=== PATIENT | female | born 1995 | race Caucasian/White ===

== ENCOUNTER 2019-03-25 21:22 | Emergency (ER) | payer OTHER ==
[~2019-03-25] VITALS: Ht 157.5 cm; Wt 73.9 kg
[~2019-03-25 21:22] MED LIST: IBUP-1542 PO
[2019-03-25 21:26] VITALS: BP 113/64; PULSE 94; RESP 18; Ht 157.5 cm; Wt 73.9 kg
[2019-03-25] MEDS ORDERED: HYDROCODONE/APAP (5/325) TAB PO ONE (23:00)
[2019-03-25] MEDS ORDERED: ACETAMINOPHEN 325 MG TAB PO ONE (23:00)
--- NOTE | 2019-03-26 02:46 | ERD ---
ER Documentation Chief Complaint Chief Complaint [facility]; STATES HIT HEAD IN SHOWER X1HR AGO; NO ALOC, NO KO HPI This is a 23-year-old otherwise healthy female presents to the ED complaining of a headache status post mechanical slip and fall in the shower earlier today. Patient states she fell onto the right side of her head but did not lose consciousness. She states she subsequently got up and then slipped again and fell to her left side. She is currently complaining of a throbbing, 8 out of 10 headache to her right temporal scalp. Also complaining of the left hip pain. She has no limping. No focal weakness. No changes in vision. She reports feeling a little bit nauseous but has had no vomiting. Took ibuprofen at home without any relief. She presents here today requesting CT of the head and further imaging. ROS All systems reviewed and are negative except as per history of present illness. Medications Home Meds Active Scripts Ibuprofen* (Motrin*) 600 Mg Tab, 600 MG PO Q8, #30 TAB Prov:DIYA DOW PA-C 03/26/19 Allergies Allergies: Coded Allergies: No Known Allergy (Unverified , 03/25/19) PMhx/Soc Medical and Surgical Hx: pt denies Medical Hx, pt denies Surgical Hx History of Surgery: No Anesthesia Reaction: No Hx Neurological Disorder: No Hx Respiratory Disorders: No Hx Cardiac Disorders: No Hx Psychiatric Problems: No Hx Miscellaneous Medical Probl: No Hx Alcohol Use: No Hx Substance Use: No Hx Tobacco Use: No Smoking Status: Never smoker FmHx Family History: No diabetes Physical Exam Vitals Vital Signs Date Temp Pulse Resp B/P (MAP) Pulse Ox O2 O2 Flow FiO2 Time Delivery Rate 03/25/19 98.5 94 18 113/64 98 21:26 (80) Physical Exam Const: No acute distress Head: + Mild TTP to right temporal scalp no hematoma or bruising., Eyes: Normal Conjunctiva. No raccoon eyes. ENT: Normal External Ears, Nose and Mouth. No french signs. Neck: Full range of motion. No meningismus. Resp: Clear to auscultation bilaterally Cardio: Regular rate and rhythm, no murmurs Abd: Soft, non tender, non distended. Normal bowel sounds Skin: No petechiae or rashes Back: No midline or flank tenderness Neuro: M/S: Alert and oriented Face: EOMI, face and pharynx with normal sensation and function Motor: Normal strength throughout Sensation: Normal sensation throughout Speech: Normal Cerebel: Normal coordination Normal gait Normal finger to nose DTR: 2+ and symmetric upper/lower extremities Neur: Awake and alert Psych: Normal Mood and Affect Results 24 hrs Laboratory Tests Test 03/25/19 22:58 POC Beta HCG, Qualitative NEGATIVE Current Medications Medications Dose Sig/Stephanie Start Time Status Last (Trade) Ordered Route PRN Stop Time Admin Dose Reason Admin 650 mg ONCE ONCE 03/25/19 DC Acetaminophen PO 23:00 03/25/19 (Tylenol 23:00 Tab) 1 tab ONCE ONCE 03/25/19 DC 03/25/19 Acetaminophen PO 23:00 03/25/19 22:57 / 23:01 Hydrocodone Bitart (Ecorse (5/325)) Procedures/[facility]M LABS & DIAGNOSTIC IMAGING: PROCEDURE: XR Left Hip With Pelvis When Performed, 2 or 3 Views CLINICAL INDICATION: Fall. Hip pain. TECHNIQUE: Two or three views of the left hip, with pelvis when performed. COMPARISON: None FINDINGS: BONES/JOINTS: Unremarkable. No acute fracture. No dislocation. SOFT TISSUES: Unremarkable. IMPRESSION: Unremarkable left hip x-rays series. PROCEDURE: CT Brain without contrast. CLINICAL INDICATION: Headache, fall on right side of head TECHNIQUE: A CT of the brain was performed utilizing axial imaging from the skull base through the vertex without IV contrast. Multiplanar reformatted images were made. Images were reviewed on a PACS workstation. The CTDIvol is 3 9.64 mGy and the DLP is 634.23 mGycm. One or more the following dose reduction techniques were utilized: Automated exposure control, adjustment of the mA and / or kV according to patient's size, or use of iterative reconstruction technique. DICOM images are available. COMPARISON: None FINDINGS: There is no intracranial hemorrhage, mass effect, or midline shift. No extra- axial fluid collection is seen. Mild bilateral frontal atrophic changes. The density of the brain is normal, and the michaud white matter differentiation appears well-preserved. The visualized paranasal sinuses and osseous structures are grossly unremarkable. IMPRESSION: 1. No evidence of acute intracranial pathology. 2. Mild bilateral frontal atrophic changes. ED COURSE: The patient was given Ecorse The medication was well tolerated and the patient had market improvement in symptoms. The patient remained stable throughout ED course. MEDICAL DECISION MAKING: This is a 23-year-old female with right-sided headache and left hip pain after slip and fall in the shower. She has no focal neurological deficits on physical exam, no signs or symptoms to suggest intracranial fracture. I discussed with patient that I do not think CT head imaging is appropriate at this time however she continued to request CT head. This was negative for any acute skull fracture or intracranial bleeding. Left hip x-ray was also unremarkable. Patient was given Ecorse for her pain, she requested to go home with a prescription for this however I did not think Ecorse was appropriate given her normal imaging. Patient was ambulatory and remained neurologically intact throughout her stay here in the department. She does not need further work-up or treatment at this time. She was discharged home with a prescription for ibuprofen, PCP follow-up in 1 week and strict return precautions. PRESCRIPTIONS: Ibuprofen SPECIALIST FOLLOW UP RECOMMENDED: None Departure Diagnosis: Primary Impression: Closed head injury Encounter type: initial encounter Qualified Codes: S09.90XA - Unspecified injury of head, initial encounter Additional Impression: Left hip pain Condition: Stable Patient Instructions: HEAD INJURY, No Wake-Up (Adult) Additional Instructions: Call your primary care doctor TOMORROW for an appointment during the next 2-4 days and bring all the information and medications prescribed. If the symptoms get worse and your provider is unavailable, return to the Emergency Department immediately. DIYA DOW PA-C Mar 26, 2019 02:46
== END 2019-03-26 02:46 | disposition home or self-care (01) ==
LOC: FTE 21:22
DX: S09.90XA Unspecified injury of head, initial encounter (principal); S79.912A Unspecified injury of left hip, initial encounter; R51 Headache; W01.0XXA Fall on same level from slipping, tripping and stumbling without subsequent striking against object, initial encounter; Y92.9 Unspecified place or not applicable
CPT/HCPCS: 70450; 73510; 81025; Z7502; Z7610; 73502